=== PATIENT | female | born 1995 | race Caucasian/White ===

== ENCOUNTER 2016-07-27 15:05 | Outpatient (CLI) | payer MEDICAID ==
[2016-09-25] MEDS ORDERED: PRILOSEC DPS20 MG PO (19:08)
[2016-09-25] MEDS ORDERED: MOTRIN-DPS800 MG PO (19:08)
[2016-09-25] MEDS ORDERED: IRON325 M1 PO (19:08)
[2016-09-25] MEDS ORDERED: LEXAPRO DPS20 MG PO (19:09)
[2016-09-25] MEDS ORDERED: PRENATAL VIT1 TAB PO (19:09)
[2016-09-25] MEDS ORDERED: MAG-OX400 MG PO (19:09)
[2016-09-25] MEDS ORDERED: COLACE-DPS100 MG PO (19:09)
== END 2016-07-27 17:10 | disposition home or self-care (01) ==
DX: O42.913 Preterm premature rupture of membranes, unspecified as to length of time between rupture and onset of labor, third trimester (principal); Z3A.31 31 weeks gestation of pregnancy

== ENCOUNTER 2016-09-17 14:55 | Outpatient (CLI) | payer MEDICAID ==
[2016-09-25] MEDS ORDERED: MOTRIN-DPS800 MG PO (19:08)
[2016-09-25] MEDS ORDERED: IRON325 M1 PO (19:08)
[2016-09-25] MEDS ORDERED: PRILOSEC DPS20 MG PO (19:08)
[2016-09-25] MEDS ORDERED: PRENATAL VIT1 TAB PO (19:09)
[2016-09-25] MEDS ORDERED: MAG-OX400 MG PO (19:09)
[2016-09-25] MEDS ORDERED: LEXAPRO DPS20 MG PO (19:09)
[2016-09-25] MEDS ORDERED: COLACE-DPS100 MG PO (19:09)
== END 2016-09-17 16:40 | disposition home or self-care (01) ==
LOC: 2LDRP 14:55 → BC 14:55
DX: O47.1 False labor at or after 37 completed weeks of gestation (principal); Z3A.38 38 weeks gestation of pregnancy

== ENCOUNTER 2016-09-23 06:00 | Inpatient (IN) | payer MEDICAID ==
[~2016-09-23] VITALS: Ht 162.6 cm; Wt 66.7 kg
--- NOTE | ~2016-09-23 | HP ---
ADMIT: 09/23/2016 RM/LOC: 221 [facility] MR#: [id number] [address] [address] JOVANNY TAY [address] [place] [id number] History and Physical SEX: F AGE: 21 : 1995 DATE OF SERVICE: CHIEF COMPLAINT: Leaking of fluid and contractions. HISTORY OF PRESENT ILLNESS: This is a 21-year-old, G1, P0, with intrauterine at 39 weeks 3 days via first trimester ultrasound, who presents to the [facility] Center with chief complaint of leaking of fluid. The patient reports she began leaking fluid at 5:15 this morning. She also had contractions for the past two days which increased in intensity and frequency this morning after rupture of membranes. She reports normal movement. No vaginal bleeding. is complicated by acid reflux, depression, and unspecified mood disorder. She also has anemia. PAST MEDICAL HISTORY: Anemia, depression and mood disorder. MEDICATIONS: She is on: 1. Omeprazole. 2. Ferrous sulfate. 3. Gaviscon. 4. vitamin. 5. Mag oxide. 6. Sucralfate. 7. Lexapro. ALLERGIES: NO KNOWN MEDICAL ALLERGIES. PAST SURGICAL HISTORY: She had tonsillectomy in 2003. SOCIAL HISTORY: She is single. Father of baby is her boyfriend and is involved in the care. She denies alcohol use, tobacco use, or recreational drug use. FAMILY HISTORY: She has a family history significant for hypertension in her mother and father. Her brother has asthma. REVIEW OF SYSTEMS: She denies headache, changes in vision, chest pain, or shortness of breath. No nausea, vomiting, diarrhea, or constipation. PHYSICAL EXAMINATION: VITAL SIGNS: Blood pressure 118/81, pulse 96, respiratory rate 16, and she is afebrile, saturating 98% on room air. GENERAL: She is alert and oriented. She an is in acute distress with contractions. HEART: Regular rate and rhythm. LUNGS: Clear to auscultation bilaterally. HEART: Regular rate and rhythm. LUNGS: Clear to auscultation bilaterally. ABDOMEN: Gravid with estimated weight of 2900 g. ADMIT: 09/23/2016 RM/LOC: 221 [facility] MR#: [id number] [id number] [address] [place] [address] History and Physical SEX: F AGE: 21 : 1995 EXTREMITIES: She has no edema in bilateral lower extremities. Sterile vaginal exam; 3, 80, 0 on admission per nursing staff. heart rate baseline is 130, moderate variability, positive accelerations, no decelerations. Lasalle q.2 to 3 minutes. LABS: Blood type is O positive. Direct antibody testing negative. GBS negative. One-hour glucose tolerance test 103. Hepatitis B negative. RPR negative. Rubella immune. Gonorrhea and chlamydia negative. Hemoglobin and platelet count pending at the time of admission. ASSESSMENT AND PLAN: This is a 21-year-old, G1, P0, with intrauterine at 39 weeks 3 days, who presents to the Birthing Center with rupture of membranes and contractions. 1. Admit to the Birthing Center. Consents were obtained for vaginal delivery, assistive vaginal delivery, or section. The patient does consent to a blood transfusion should she need one. Blood type is O positive. CBC was obtained upon admission. 2. Category one heart rate tracing. We will continue to monitor throughout the labor process. 3. Maternal well being. She requests epidural upon admission. We will contact Anesthesia immediately. 4. GBS negative. No plan for antibiotic prophylaxis at this time. 5. Acid reflux. Continue home medication regimen. 6. Depression and unspecified mood disorder. Continue home medication regimen and monitor for signs and symptoms of depression after delivery. 7. Continue expectant management. The patient was seen and discussed with staff physician on the day of admission. Lidya Caldwell MD Resident / Eren Floyd MD / modl JOB #: [id number] CC: Eren Floyd, Attending Physician UNKNOWN, Family Physician
--- NOTE | ~2016-09-23 | FD ---
ADMIT: 09/23/2016 RM/LOC: 221 [facility] MR#: [id number] [address] [address] JOVANNY TAY [facility] [place] [address] Final Diagnosis SEX: F AGE: 21 : 1995 ADMISSION DATE: 09/23/2016 DISCHARGE DATE: 09/24/2016 FINAL DIAGNOSIS: 1. Spontaneous vaginal delivery at 39 weeks 3 days, 1 para 1-0-0-1, 21-year-old female. 2. Depression/mood disorder. 3. Acid reflux. PROCEDURE: 1. Spontaneous vaginal delivery. 2. Epidural catheter placement and removal. Lidya Caldwell MD Resident / Eren Floyd MD / shobha JOB #: [id number] CC: Eren Floyd MD, Attending Physician UNKNOWN, Family Physician
[2016-09-25] MEDS ORDERED: MOTRIN-DPS800 MG PO (19:08)
[2016-09-25] MEDS ORDERED: IRON325 M1 PO (19:08)
[2016-09-25] MEDS ORDERED: PRILOSEC DPS20 MG PO (19:08)
[2016-09-25] MEDS ORDERED: MAG-OX400 MG PO (19:09)
[2016-09-25] MEDS ORDERED: LEXAPRO DPS20 MG PO (19:09)
[2016-09-25] MEDS ORDERED: COLACE-DPS100 MG PO (19:09)
[2016-09-25] MEDS ORDERED: PRENATAL VIT1 TAB PO (19:09)
--- NOTE | 2016-10-05 09:38 | OR ---
ADMIT: 09/23/2016 RM/LOC: 221 [facility] MR#: [id number] [address] MAGGISANDRAJOVANNY A [address] [place] [address] Operative/Delivery Room Report SEX: F AGE: 21 : 1995 SURGERY DATE: 09/23/2016 SURGEON: Eren Floyd MD PROCEDURE: Spontaneous vaginal delivery. RESIDENT: Lidya Caldwell MD Resident PREPROCEDURE DIAGNOSES: 1. A 21-year-old, 1, para 0, with intrauterine at 39 weeks 3 days. 2. Depression. 3. Anemia. POSTPROCEDURE DIAGNOSES: 1. 1, para 1-0-0-1, 21-year-old female, status post spontaneous vaginal delivery. 2. First-degree perineal laceration, status post repair. ANESTHESIA: Epidural. ESTIMATED BLOOD LOSS: 250 mL. FINDINGS: Viable female infant with a weight of 3380 g. scores 5 and 8. The patient delivered in RAND presentation and did require respiratory resuscitation following delivery. Normal placenta with 3-vessel cord. COMPLICATIONS: None, the patient tolerated the procedure well. HOSPITAL COURSE AND PROCEDURE: This is a 21-year-old, G1, P0, female with intrauterine at 39 weeks 3 days who presented to Labor and Delivery and was admitted for ruptured membranes as well as regular contractions. The patient progressed to complete without further augmentation. She did receive an epidural upon admission. The patient was complete and expulsive efforts were begun. Minimal progress with expulsive efforts, and the decision was made to let the patient labor down. Expulsive efforts were then begun again an hour and half later. After approximately 2 hours of pushing, the 's head was brought to the perineum. The patient was placed in a dorsal lithotomy position and prepped and draped in normal sterile fashion. The 's head was delivered over an intact perineum. The head was restituted to the left. The anterior and posterior shoulder delivered without difficulty. The body followed. There was a nuchal cord x1 which was reduced following delivery of the head. The was quiet and hypertonic upon delivery and was placed on the maternal abdomen. The infant was stimulated and had a weak cry. Cord was clamped and cut and the infant was handed to the resuscitation team. Cord blood was collected. Cord gas was not collected. The placenta delivered spontaneously with a 3-vessel cord. Pitocin was ADMIT: 09/23/2016 RM/LOC: 221 [facility] MR#: [id number] [id number] [address] [address] [place] [address] Operative/Delivery Room Report SEX: F AGE: 21 : 1995 administered per protocol. The vagina, perineum, and cervix were inspected for lacerations. The patient was to found have a first-degree perineal laceration which was repaired with two [id number] stitches of 3-0 Vicryl. All tissues were found to be hemostatic following the repair. The fundus found to be firm and below the umbilicus. A catheter was used to empty the bladder following the procedure. At the completion of this procedure, the patient was sat up in bed and the epidural catheter was removed. Catheter tip was intact at removal. Following delivery of the infant, the infant was handed to the resuscitation team as previously noted. The infant did require PPV for approximately 1 minute and 15 seconds prior to spontaneous respirations. Heart rate remained greater than 100, and no CPR was performed. Tone, color, and oxygen saturation were found to be within the realm of normal limits at the completion of PPV administration. Please see nursing notes as well as the repeater chief's history and physical exam for further information of resuscitation. At the completion of the above procedure, and mother were stable in mother's room. Dr. Eren Floyd was present for the entire procedure. Lidya Caldwell MD Resident / Eren Floyd MD / modl JOB #: [id number] CC: Eren Floyd, Attending Physician UNKNOWN, Family Physician
== END 2016-09-24 19:35 | disposition home or self-care (01) | DRG 775 ==
LOC: 2LDRP 06:00 → BC 06:00 → 2LDRP 06:30 → BC 09-27 10:44
PROVIDERS: ADMIT Obstetrics & Gynecology
PROC: 10E0XZZ Delivery of Products of Conception, External Approach (ICD-10-PCS; principal; 2016-09-23)
PROC: 0HQ9XZZ Repair Perineum Skin, External Approach (ICD-10-PCS; principal; 2016-09-23)
DX: O69.81X0 Labor and delivery complicated by cord around neck, without compression, not applicable or unspecified (principal); O99.344 Other mental disorders complicating childbirth; F32.9 Major depressive disorder, single episode, unspecified; O99.02 Anemia complicating childbirth; D64.9 Anemia, unspecified; F39 Unspecified mood [affective] disorder; O99.62 Diseases of the digestive system complicating childbirth; K21.9 Gastro-esophageal reflux disease without esophagitis; O70.0 First degree perineal laceration during delivery; Z3A.39 39 weeks gestation of pregnancy; Z37.0 Single live birth